=== PATIENT | male | born 1995 | race Caucasian/White ===

== ENCOUNTER 2016-05-22 | Emergency (ER) | payer OTHER | END 2016-05-22 21:40 | disposition home or self-care (01) | DX: S00.81XA Abrasion of other part of head, initial encounter (principal); F17.290 Nicotine dependence, other tobacco product, uncomplicated; W17.89XA Other fall from one level to another, initial encounter; Y92.009 Unspecified place in unspecified non-institutional (private) residence as the place of occurrence of the external cause | CPT/HCPCS: 70450; 99283 ==